=== PATIENT | male | born 1950 | race American Indian/Alaskan Native ===

== ENCOUNTER 2017-12-23 00:22 | Emergency (ER) | payer SELFPAY ==
[2017-12-23] MEDS ORDERED: NACL 0.9% 1000 ML 1,000 ML IV ONE (00:57)
[2017-12-23 01:22] LABS: Basophils % (Auto) 0.5 % (0.0-1.8); Eosinophils # (Auto) 0.2 K/mm3 (0.0-0.4); Eosinophils % (Auto) 2.4 % (0.0-4.3); Hematocrit 45.8 % (35.5-45.6); Hemoglobin 15.3 gm/dl (11.8-15.2); Mean Corpuscular HGB Conc 34 % (32-34); Mean Corpuscular Hemoglobin 29 pg (28-32); Mean Corpuscular Volume 87 fl (84-94); Monocytes # (Auto) 0.6 K/mm3 (0.0-0.8); Monocytes % (Auto) 9.2 % (0.0-7.3); Platelet Count 207 K/mm3 (140-440); Red Blood Count 5.29 M/mm3 (3.65-5.03); Red Cell Distribution Width 14.5 % (13.2-15.2)
[2017-12-23 01:43] LABS: Alanine Aminotransferase 12 units/L (7-56); Albumin 4.3 g/dL (3.9-5); BUN/Creatinine Ratio 14; Blood Urea Nitrogen 18 mg/dL (9-20); Hemolysis Index 4
[2017-12-23] MEDS ORDERED: PEPCID IV ONE (01:58)
[2017-12-23] MEDS ORDERED: TORADOL IV ONE (01:58)
[2017-12-23] MEDS ORDERED: ZOFRAN IV ONE (01:58)
--- NOTE | 2017-12-23 02:14 | Emergency Department Report ---
HPI - General Chief Complaint: Abdominal Pain Time Seen by Provider: 12/23/17 01:46 - HPI HPI: Room 6 The patient is a 67-year-old male presenting with chief complaint of abdominal pain. The patient states his symptoms began 2 days ago approximately one hour after eating brown rice with an unknown meat, mixed vegetables and green beans from a restaurant. The patient states one hour after eating this food he developed periumbilical pain and then frequent nausea and vomiting. Patient states he went home and still was unable to eat secondary to the nausea. The patient states the following day he felt better and was able to eat. The patient states he felt well today until 19:00 when his abdominal pain returned. The patient took Rolaids thinking that it may be gas but it did not help. The persistent pain prompted the patient come to the emergency department for evaluation. Patient currently gets his pain is score of 10/10. Patient denies fever or diarrhea. Patient describes the pain as sharp in nature Location: Periumbilical Duration: Onset 2 days ago, intermittent Quality: Sharp Severity:10/10 Modifying factors: [see above] Context: [see above] Mode of transportation: The patient drove himself to the emergency department and there are no visitors present ED Past Medical Hx - Past Medical History Previous Medical History?: Yes Hx Hypertension: Yes (keeps a diary and uses herbs to control it) Hx Diabetes: Yes (New prediabetes MD to monitor w/diet) Additional medical history: Glaucoma - Surgical History Past Surgical History?: No - Family History Family history: no significant - Social History Smoking Status: Former Smoker (none 30 years) Substance Use Type: None (denies illicit drug use) ED Review of Systems ROS: Stated complaint: ABD PAIN Other details as noted in HPI Constitutional: denies: fever Eyes: denies: eye pain ENT: denies: throat pain Respiratory: no symptoms reported Cardiovascular: denies: chest pain Endocrine: denies: unexplained weight loss (patient has been dieting) Gastrointestinal: abdominal pain, nausea, vomiting. denies: diarrhea Genitourinary: denies: dysuria Musculoskeletal: denies: back pain Neurological: denies: headache Physical Exam - Physical Exam Vital Signs: Vital Signs 12/23/17 00:47 Temperature 98.3 F Pulse Rate 77 Respiratory 18 Rate Blood Pressure 146/111 O2 Sat by Pulse 97 Oximetry Physical Exam: GENERAL: The patient is well-developed well-nourished male lying on stretcher in no apparent acute distress. [] HEENT: Normocephalic. Atraumatic. Extraocular motions are intact. Patient has moist mucous membranes. NECK: Supple. Trachea midline CHEST/LUNGS: Clear to auscultation. There is no respiratory distress noted. HEART/CARDIOVASCULAR: Regular. There is no tachycardia. There is no gallop rub or murmur. ABDOMEN: Abdomen is soft, nontender. Patient has normal bowel sounds. There is no abdominal distention. SKIN: There is no rash. There is no edema. There is no diaphoresis. NEURO: The patient is awake, alert, and oriented. The patient is cooperative. The patient has normal speech MUSCULOSKELETAL: There is no evidence of acute injury. ED Course Vital Signs 12/23/17 00:47 Temperature 98.3 F Pulse Rate 77 Respiratory 18 Rate Blood Pressure 146/111 O2 Sat by Pulse 97 Oximetry - Consultations Consultation #1: 12/23/17 03:25 Surgery paged 12/23/17 03:[address] Neil- recommends NG tube, nothing by mouth and have hospitalist admit the patient. Will consult ED Medical Decision Making - Lab Data Result diagrams: 12/23/17 01:07 12/23/17 01:07 Laboratory Tests 12/23/17 12/23/17 12/23/17 01:07 01:07 01:07 WBC 6.5 RBC 5.29 H Hgb 15.3 H Hct 45.8 H MCV 87 MCH 29 MCHC 34 RDW 14.5 Plt Count 207 Lymph % (Auto) 31.0 Major % (Auto) 9.2 H Eos % (Auto) 2.4 Baso % (Auto) 0.5 Lymph # 2.0 Major # 0.6 Eos # 0.2 Baso # 0.0 Seg Neutrophils % 56.9 Seg Neutrophils # 3.7 Sodium 143 Potassium 4.4 Chloride 102.1 Carbon Dioxide 25 Anion Gap 20 BUN 18 Creatinine 1.3 Estimated GFR > 60 BUN/Creatinine Ratio 14 Glucose 121 H Calcium 10.0 Total Bilirubin 0.40 AST 18 ALT 12 Alkaline Phosphatase 64 Total Protein 8.2 Albumin 4.3 Albumin/Globulin Ratio 1.1 Lipase 44 - Radiology Data Radiology results: report reviewed (CT abdomen and pelvis), image reviewed (CT abdomen and pelvis) [facility] [address] [place] [address] Cat Scan Report Signed Patient: LEONEL SCHMITT MR#: [id number] : 1949 Acct:[id number] Age/Sex: 67 / M ADM Date: 12/23/17 Loc: ED Attending Dr: Ordering Physician: NAY CHRIS MD Date of Service: 12/23/17 Procedure(s): CT abdomen pelvis w con Accession Number(s): [id number] cc: NAY CHRIS MD FINAL REPORT EXAM: CT ABDOMEN PELVIS W CON HISTORY: Acute Abdominal pain across abdomen TECHNIQUE: Routine axial imaging was obtained of the abdomen and pelvis following the intravenous injection of 100 cc of Omnipaque 300. Sagittal and coronal reconstructions were reviewed. Delayed imaging was obtained through the kidneys ureters and bladder. FINDINGS: The lung bases do not show infiltrates or effusions. The gallbladder is contracted. The liver, pancreas, spleen, and adrenal glands appear normal. The kidneys enhance normally. There is no evidence of hydronephrosis. The abdominal aorta is normal in caliber. The stomach is distended with fluid. There is moderate distention of the duodenum and proximal to mid jejunum with air-fluid levels. The findings are compatible with partial mechanical small bowel obstruction. The distal ileal loops are normal in caliber. There no evidence of free fluid or adenopathy. The appendix is not enlarged. The vasculatures enhance normally. In the pelvis the prostate gland is moderately enlarged. The bladder appears normal. There is a small amount of free fluid in the deep pelvis. The skeletal structures reveal arthritic changes in the lower lumbar spine. IMPRESSION: Moderate partial mechanical small bowel obstruction at the level of the mid to distal jejunum. No evidence of bowel ischemia. Prostatic enlargement. Small amount of fluid in the deep pelvis. 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 Transcribed By: RB Dictated By: CHRISTOS LOMELI MD Electronically Authenticated By: CHRISTOS LOMELI MD Signed Date/Time: 12/23/17310 DD/ 0 TD/TT: 12/23/17310 - Differential Diagnosis food borne illness, acute gastritis, pancreatitis, Critical care attestation.: If time is entered above; I have spent that time in minutes in the direct care of this critically ill patient, excluding procedure time. ED Disposition Clinical Impression: Acute abdominal pain, Partial small bowel obstruction Disposition: OP ADMIT IP TO THIS HOSP Is pt being admited?: Yes Does the pt Need Aspirin: No Condition: Fair Referrals: PRIMARY CARE, [Referring] - 3-5 Days Time of Disposition: 03:31 ( hospitalist paged (Dr. Kelly Manzo))
--- NOTE | 2017-12-23 03:18 | Cat Scan Report ---
FINAL REPORT EXAM: CT ABDOMEN PELVIS W CON HISTORY: Acute Abdominal pain across abdomen TECHNIQUE: Routine axial imaging was obtained of the abdomen and pelvis following the intravenous injection of 100 cc of Omnipaque 300. Sagittal and coronal reconstructions were reviewed. Delayed imaging was obtained through the kidneys ureters and bladder. FINDINGS: The lung bases do not show infiltrates or effusions. The gallbladder is contracted. The liver, pancreas, spleen, and adrenal glands appear normal. The kidneys enhance normally. There is no evidence of hydronephrosis. The abdominal aorta is normal in caliber. The stomach is distended with fluid. There is moderate distention of the duodenum and proximal to mid jejunum with air-fluid levels. The findings are compatible with partial mechanical small bowel obstruction. The distal ileal loops are normal in caliber. There no evidence of free fluid or adenopathy. The appendix is not enlarged. The vasculatures enhance normally. In the pelvis the prostate gland is moderately enlarged. The bladder appears normal. There is a small amount of free fluid in the deep pelvis. The skeletal structures reveal arthritic changes in the lower lumbar spine. IMPRESSION: Moderate partial mechanical small bowel obstruction at the level of the mid to distal jejunum. No evidence of bowel ischemia. Prostatic enlargement. Small amount of fluid in the deep pelvis. 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
[2017-12-23 04:05] VITALS: BP 117/84
== END 2017-12-23 03:51 | disposition admitted as inpatient to this hospital (09) ==
LOC: ED 00:22
DX: K56.600 Partial intestinal obstruction, unspecified as to cause (principal); I10 Essential (primary) hypertension; E11.9 Type 2 diabetes mellitus without complications; Z87.891 Personal history of nicotine dependence
CPT/HCPCS: 36415; 74177; 80053; 83690; 85025; 96361; 96374; 96375; 99284; J1885; J2405; J7030; Q9967